=== PATIENT | female | born 1965 | race Hispanic/Latino ===

== ENCOUNTER 2017-06-11 18:06 | Emergency (ER) | payer OTHER, BC ==
[2017-06-11 18:11] VITALS: BMI 47.5
[2017-06-11 18:19] VITALS: BP 117/80; PULSE 70; RESP 18; TEMP 97.9; O2SAT 96
--- NOTE | 2017-06-11 18:45 | C.PDOC ---
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 Denies weakness or numbness. Time Seen by Provider: 06/11/17 18:30 Chief Complaint (Nursing): Finger,Hand,&Wrist History Per: Patient History/Exam Limitations: no limitations Onset/Duration Of Symptoms: Hrs Current Symptoms Are (Timing): Still Present Exacerbating Factor(s): Nothing Recent travel outside of the [place]: No Past Medical History Reviewed: Historical Data, Nursing Documentation, Vital Signs Vital Signs: Last Vital Signs Temp 97.9 F 06/11/17 18:11 Pulse 70 06/11/17 18:11 Resp 18 06/11/17 18:11 BP 117/80 06/11/17 18:11 Pulse Ox 96 06/11/17 20:29 - Medical History PMH: No Chronic Diseases Surgical History: Tonsillectomy - [facility] Procedures INFUSION OF IMMUNOSUPPRESSIVE ANTIBODY THERAPY (06/17/15) INJECT CA CHEMOTHER NEC (07/16/15) Family History: States: Unknown Family Hx - Social History Hx Alcohol Use: No Hx Substance Use: No - Immunization History Hx Tetanus Toxoid Vaccination: No Hx Influenza Vaccination: No Hx Pneumococcal Vaccination: No Review Of Systems Musculoskeletal: Positive for: Hand Pain Neurological: Negative for: Weakness, Numbness Physical Exam - Physical Exam Appears: Non-toxic, No Acute Distress Skin: Normal Color, Warm, Dry Head: Atraumatic, Normacephalic Oral Mucosa: Moist Extremity: Tenderness (to right 5th PIP joint), Swelling (To right 5th PIP joint ), Other (ROM limited to right 5th finger secondary to pain) Pulses: Left Radial: Normal, Right Radial: Normal Neurological/Psych: Oriented x3, Normal Speech, Normal Cognition ED Course And Treatment O2 Sat by Pulse Oximetry: 96 (Room air) Pulse Ox Interpretation: Normal - Other Rad Right hand x-ray X-Ray: Interpreted by Me, Viewed By Me Interpretation: No acute fractures or dislocations Medical Decision Making Medical Decision Making: Plan: * Right hand x-ray Finger splint applied by cnc technician and checked by me. On reevaluation, patient pain has improved, will discharge home with instructions to follow up with PMD. Disposition - Disposition Referrals: Robb Reed MD [Provisional Staff] - Disposition: HOME/ ROUTINE Disposition Time: 19:41 Condition: GOOD Additional Instructions: Followup with the medical doctor within 1-2 days. Return if worsened. Instructions: Finger Sprain (ED) Forms: Work Excuse - Clinical Impression Clinical Impression: Finger sprain - Scribe Statement The provider has reviewed the documentation as recorded by the Scribe Jeff Meneses All medical record entries made by the Mendozaibe were at my direction and personally dictated by me. I have reviewed the chart and agree that the record accurately reflects my personal performance of the history, physical exam, medical decision making, and the department course for this patient. I have also personally directed, reviewed, and agree with the discharge instructions and disposition.
--- NOTE | 2017-06-12 10:13 | RAD ---
Right 5th digit three views History: Pain. Comparison: None available. Findings: Mild nonspecific productive change and or questionable cortical irregularity seen at the ulnar sided cortex of the 5th distal phalanx at its base. Narrowing of the 5th PIP and DIP joint spaces. Cortical productive change along the radial and ulnar sided cortices of the 2nd through 5th proximal phalanges as well as the lateral cortex of the 5th metacarpal bone, nonspecific. Narrowing of the radiocarpal joint spaces with some questionable mild widening of the scapholunate interval. Impression: Mild nonspecific productive change and or questionable cortical irregularity seen at the ulnar sided cortex of the 5th distal phalanx at its base. Narrowing of the 5th PIP and DIP joint spaces. Cortical productive change along the radial and ulnar sided cortices of the 2nd through 5th proximal phalanges as well as the lateral cortex of the 5th metacarpal bone, nonspecific. Narrowing of the radiocarpal joint spaces with some questionable mild widening of the scapholunate interval. If pain persists, consider MRI.
== END 2017-06-11 19:49 | disposition home or self-care (01) ==
LOC: C.ER 18:06
DX: S63.616A Unspecified sprain of right little finger, initial encounter (principal); W01.0XXA Fall on same level from slipping, tripping and stumbling without subsequent striking against object, initial encounter; Y92.89 Other specified places as the place of occurrence of the external cause; Y99.0 Civilian activity done for income or pay